=== PATIENT | male | born 1990 | race Caucasian/White ===

== ENCOUNTER 2018-12-22 18:43 | Emergency (ER) | payer SELFPAY ==
[2018-12-22 18:48] VITALS: BP 129/72; PULSE 95; RESP 20; TEMP 38.1; O2SAT 98; BMI 23.7
--- NOTE | 2018-12-22 18:57 | ED.SKABFB ---
HPI - Skin/Abscess/Foreign Bdy General Chief complaint: Skin/Abscess/Foreign Body Stated complaint: THINKS SPIDER BITE Time Seen by Provider: 12/22/18 18:57 Source: patient Mode of arrival: ambulatory Limitations: no limitations History of Present Illness HPI narrative: Otherwise healthy 28-year-old male here for evaluation of a potential infection on the back of his right leg. He states it has been there for the past 1-2 days. Has had fevers. Took Motrin prior to arrival. States that it drained a small amount of green material prior to arrival. Has no knee pain or ankle pain. Has never had an abscess that needed drained in the past. Related Data Previous Rx's Medication Instructions Recorded doxycycline hyclate 100 mg PO BID 7 Days #14 tab 12/22/18 Allergies Allergy/AdvReac Type Severity Reaction Status Date / Time amoxicillin Allergy Swelling Verified 12/22/18 18:51 of the Eye Review of Systems Constitutional Reports fever(s) Musculoskeletal Denies arthralgias Integumentary/Breasts Comments: Redness and pain to the back of the right leg over the calf Hematologic/Lymphatic Denies easy bleeding and Denies easy bruising PFSH Medical History Healthy adult (Acute) Social History Smoking Status: Current every day smoker Social History Smoking Status: Current every day smoker Exam Initial Vital Signs Initial Vital Signs: Vital Signs Temperature 100.5 F H 12/22/18 18:48 Pulse Rate 95 H 12/22/18 18:48 Respiratory Rate 20 12/22/18 18:48 Blood Pressure 129/72 12/22/18 18:48 Pulse Oximetry 98 12/22/18 18:48 Const General: cooperative, well developed, well groomed and No acute distress Orientation: alert, awake and oriented x3 HENMT Head: normal to inspection and normocephalic Resp Effort & Inspection: normal respiratory effort Cardio Rate: regular rate Skin Other: Patient with a 15 cm area redness on the posterior aspect of the right calf. Has a 2 cm area of induration located within the center with a small ulceration. No active drainage. Neuro General: alert and awake Extrem General: normal to inspection and capillary refill normal Psych Appearance: grossly normal and well kempt Course Vital Signs - 8 hr 12/22/18 18:48 Temperature 100.5 F H Pulse Rate 95 H Respiratory Rate 20 Blood Pressure 129/72 Pulse Oximetry 98 MDM - Skin/Abscess/Foreign Bdy MDM Narrative Medical decision making narrative: Bedside ultrasound does not show a drainable abscess. Does have a small area of induration and surrounding cellulitis. Patient did take Motrin prior to arrival. He is otherwise healthy. Will send home with oral antibiotics. Will take Tylenol and/or Motrin for any fevers. He was given return precautions. He expressed understanding and agreement with plan. Discharge Plan Departure Patient Disposition: Home Clinical Impression: Cellulitis Instructions: DI for Cellulitis -- Adult Activity Restrictions/Additional Instructions: Take the antibiotics as directed. You can shower like normal. Use soap and water like normal. He can take Tylenol/acetaminophen and/or Motrin/ibuprofen for any fevers. Contact her primary doctor for follow-up. Return to the emergency department for any new or worsening symptoms Prescriptions: New doxycycline hyclate 100 mg tablet 100 mg PO BID 7 Days Qty: 14 RF: 0
== END 2018-12-22 19:38 | disposition home or self-care (01) ==
PROVIDERS: Emergency Provider Emergency Medicine
DX: L03.90 Cellulitis, unspecified (principal)
CPT/HCPCS: 99282